=== PATIENT | female | born 1975 | race Caucasian/White ===

== ENCOUNTER 2017-08-11 08:24 | Day surgery (SDC) | payer OTHER ==
[2017-08-07 10:51] VITALS: BMI 23.4
[2017-08-11] MEDS ORDERED: ceFAZolin 1 gm in NS 0 GM/0 ML BAG IVPB ONE (09:22)
[2017-08-11] MEDS ORDERED: Bupivacaine-Epi 0.5%-1:200,000 PF Inj ONE (09:23)
[2017-08-11] MEDS ORDERED: Midazolam 2 MG/2 ML VIAL ONE (09:41)
[2017-08-11] MEDS ORDERED: Propofol 10 mg/ml Inj (20 ML) ONE (09:41)
[2017-08-11] MEDS ORDERED: Lidocaine Hydrochloride 5 ML INJ ONE (09:43)
[2017-08-11] MEDS ORDERED: Oxycodone/Acetaminophen 5/325 mg Tab PO PRN (10:27)
--- NOTE | 2017-08-11 10:27 | PCM.SURG1 ---
Surgeon's Initial Post Op Note - Surgeon's Notes Surgeon: Dr. Suggs Orientor: Dr. Deal PGY2 Type of Anesthesia: IV Sedation Pre-Operative Diagnosis: Anal Skin Tag Operative Findings: Large anal skin tag Post-Operative Diagnosis: Large anal skin tag Operation Performed: Large anal skin tag exscision Specimen/Specimens Removed: Skin tag Estimated Blood Loss: EBL {In ML}: 0 Blood Products Given: N/A Drains Used: No Drains Post-Op Condition: Good Date of Surgery/Procedure: 08/11/17 Time of Surgery/Procedure: 10:26
[2017-08-11] MEDS ORDERED: HYDROmorphone 0.5 mg/0.5 ml ISec IVP PRN (10:49)
[2017-08-11] MEDS ORDERED: Lactated Ringer's 1,000 ML IV SCH (11:00)
[2017-08-11 11:47] VITALS: RESP 16; O2SAT 100
[2017-08-11 12:13] VITALS: BP 100/52; PULSE 74; TEMP 97.6
--- NOTE | 2017-08-11 21:43 | OP ---
PROCEDURE DATE: 08/11/2017 PREOPERATIVE DIAGNOSIS: A large skin tag, perianal area. POSTOPERATIVE DIAGNOSIS: A large skin tag, perianal area.. PROCEDURE PERFORMED: Excision. FINDING: There is a large redundant skin noted around the perianal area about the 7 o'clock position. DESCRIPTION OF PROCEDURE: Under general anesthesia, the patient was prepared and draped in the usual sterile fashion. Marcaine with epinephrine was injected at the base of this lesion. A purse-string suture was then inserted around the base of this lesion. It was tied and then the lesion excised, and the excess skin fulgurated. No bleeding was noted. Procedure terminated. No complications. Cristian Suggs MD
== END 2017-08-11 12:07 | disposition home or self-care (01) ==
LOC: C.SDS 08:24
PROVIDERS: ATTEND Surgery
DX: L91.8 Other hypertrophic disorders of the skin (principal)
CPT/HCPCS: 46220; 88304; J2250; J2704; J3010